=== PATIENT | male | born 2000 | race Caucasian/White ===

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

== ENCOUNTER 2021-03-17 08:23 | Emergency (ER) | payer OTHER ==
[~2021-03-17] VITALS: Ht 188 cm; Wt 98.9 kg
[2021-03-17] MEDS ORDERED: DOXYCYCLINE HY100 MG PO (08:51)
== END 2021-03-17 09:13 | disposition home or self-care (01) ==
LOC: ED 08:23
DX: L03.011 Cellulitis of right finger (principal)
CPT/HCPCS: 73140; 90471; 90714; 99283-25

== ENCOUNTER 2022-08-19 11:19 | Emergency (ER) | payer OTHER ==
[~2022-08-19] VITALS: Ht 188 cm; Wt 98.9 kg
[2022-08-19] MEDS ORDERED: RECTIV30 GM PR (12:16)
== END 2022-08-19 12:30 | disposition home or self-care (01) ==
LOC: ED 11:19
DX: S30.817A Abrasion of anus, initial encounter (principal); K60.2 Anal fissure, unspecified; X58.XXXA Exposure to other specified factors, initial encounter
CPT/HCPCS: 99283